=== PATIENT | female | born 1990 ===

== ENCOUNTER 2020-04-10 13:28 | Outpatient (RCR) | payer OTHER | END 2020-06-30 12:39 | disposition home or self-care (01) | LOC: WSOH 13:28 | DX: S80.11XA Contusion of right lower leg, initial encounter (principal); S90.31XA Contusion of right foot, initial encounter; S80.01XA Contusion of right knee, initial encounter; J45.909 Unspecified asthma, uncomplicated; Y99.0 Civilian activity done for income or pay ==